=== PATIENT | male | born 1955 | race Caucasian/White ===

== ENCOUNTER 2016-08-13 12:25 | Day surgery (SDC) | payer OTHER ==
[~2016-08-13] VITALS: Ht 177.8 cm; Wt 72.0 kg
[~2016-08-13 12:25] MED LIST: 0.9% Sodium Chloride 1,000 ML IV PRN; LATA2.5D6 OP; Sodium Chloride LOK Flush 10 mL Syringe IV PRN; fentaNYL-PF 50 mCg/mL 2 mL Inj IVPUSH PRN
[2016-08-13 13:06] VITALS: BP 132/76; PULSE 53; RESP 16; O2SAT 97
[2016-08-13 15:13] VITALS: BP 110/62; PULSE 47; RESP 10; O2SAT 100
[2016-08-13 15:23] VITALS: BP 115/66; PULSE 47; RESP 12; O2SAT 100
[2016-08-13 15:39] VITALS: BP 120/63; PULSE 52; RESP 12; O2SAT 99
--- NOTE | 2016-08-13 15:42 | ENDO ---
[address] [address] ENDOSCOPY PROCEDURE PATIENT: FLACA KNOX : 1955 MR#: [id number] ADMIT: 08/13/2016 JOB ID: [id number] DATE OF SERVICE: 08/13/2016 PRIMARY PROVIDER: Rene Lau MD. PROCEDURE: Flexible sigmoidoscopy (failed colonoscopy). INDICATIONS: A 61-year-old male who reports for screening. He has a history of intermittent constipation and uses regular senna. EQUIPMENT: [employer]-H180AL. SEDATION: 1. Versed 6 mg. 2. Fentanyl 125 mcg. COMPLICATIONS: None identified. BOWEL PREPARATION: Excellent distally. PROCEDURE INFORMATION: After the risks and benefits were explained, written and verbal informed consent was obtained. The patient was brought into the endoscopy suite and placed into the left lateral decubitus position. Sedation was achieved using the above-stated medications with the addition of oxygen via nasal cannula. A digital rectal examination was accomplished. No significant pathology appreciated. The scope was introduced into the rectum and advanced under direct visualization to the level of approximately descending colon, and 50 cm of scope was introduced. The patient had incredible tortuosity along with extensive diverticulosis and melanosis coli. We could not overcome the looping, and I did not feel as though I could safely push through the loop to advance any further in spite of multiple patient position changes and applications of pressure. We therefore abandoned our efforts at cecal interrogation and slowly withdrew the scope to evaluate distal mucosa. Multiple direct views were made through the dentate line. The colon was decompressed. The scope removed from the patient who tolerated the procedure well. FINDINGS: Melanosis coli as above. Left-sided diverticulosis. Very tortuous left colon. I did not appreciate any significant polyps or mass lesions. No inflammatory features throughout this section of the bowel. ENDOSCOPIC DIAGNOSES: 1. Melanosis coli. 2. Diverticulosis. 3. Failed navigation secondary to tortuosity. RECOMMENDATIONS: It would be advisable the patient experience an alternative modality for colon cancer screening in the future. Virtual colonography would be advisable to complete the colon cancer screening experience. This will be offered to the patient but I understand he is hoping to catch a ferry back home this evening. If he elects to not pursue any further interrogation at the moment, then I would recommend perhaps a virtual colonography within the next year to complete the colon cancer screening experience.
== END 2016-08-13 23:59 | disposition home or self-care (01) ==
LOC: END 12:25
PROVIDERS: ATTEND Internal Medicine Gastroenterology
DX: Z12.11 Encounter for screening for malignant neoplasm of colon (principal); K57.30 Diverticulosis of large intestine without perforation or abscess without bleeding; K63.89 Other specified diseases of intestine; K59.00 Constipation, unspecified
CPT/HCPCS: 45330; 99153; G0500; J2250; J3010; J7030